=== PATIENT | male | born 1955 | race Caucasian/White ===

== ENCOUNTER → 2024-11-07 | Outpatient (CLI) | payer OTHER ==
--- NOTE | 2024-11-07 11:58 | HMCIMG ---
US ART IN & VEIN OUT HISTORY: Essential hypertension COMPARISON: None TECHNIQUE: Renal and renal arterial Doppler ultrasound study was performed. FINDINGS: The right kidney measures 10.7 x 5.1 x 4.8 cm. The left kidney measures 11.9 x 5.8 x 4.3 cm. No evidence of hydronephrosis is seen of either kidney. Both kidneys are seen. There are right renal cysts with the largest measuring 2 cm. Normal renal arterial waveforms are noted of both kidneys. The systolic velocity of right renal artery is 169 cm/s, left renal artery is 155 cm/s and abdominal aorta is 134 cm/s. Right renal artery aortic ratio is 1.3. Left renal artery aortic ratio is 1.2. IMPRESSION: 1. No hydronephrosis is seen. Unremarkable renal arterial Doppler ultrasound study.
== END | disposition home or self-care (01) ==
LOC: RAH 08:34
PROVIDERS: ATTEND Family Medicine
DX: N28.1 Cyst of kidney, acquired (principal); I11.9 Hypertensive heart disease without heart failure; I15.9 Secondary hypertension, unspecified
CPT/HCPCS: 76770; 93975

== ENCOUNTER 2024-11-20 11:45 | Emergency (ER) | payer OTHER ==
[~2024-11-20] VITALS: Ht 177.8 cm; Wt 90.3 kg
--- NOTE | 2024-11-20 12:46 | ERN ---
ED Note History of Present Illness Stated Complaint: SENT BY Chief Complaint: Cellulitis Time Seen by MD: 12:16 Dictation: 69-year-old male presents to the ED for evaluation of left elbow swelling onset three days ago. Patient reports redness, but denies any fever or other associated symptoms at this time. Patient was seen by PCP where they noticed he had elevated blood pressure, patient was prescribed blood pressure medication and antibiotics that were sent to the pharmacy. PCP told patient to come to the ER for further evaluation. Allergies: Coded Allergies: Penicillins (Unverified Allergy, Unknown, HIVES, 11/20/24) Home Meds Active Scripts Clindamycin HCl (Clindamycin HCl) 300 Mg Capsule, 1 CAP PO TID for 10 Days, #30 CAP 0 Refills Prov:ANNIE ARANA MD 11/20/24 Colchicine (Colchicine) 0.6 Mg Capsule, 1 CAP PO DAILY for 10 Days, #10 CAP 0 Refills Prov:ANNIE ARANA MD 11/20/24 Past Medical History Past Medical History: Diabetes-Type II, Hypertension Additional Past Medical Hx: SLEEP APNEA, CHRONIC BACK PAIN Surgical History: Other Surgical History Other: BACK. UMBILICAL HERNIA Review of System Dictation Constitutional: Negative for fever,chills, and weight loss Eyes: Negative for injury, pain,redness, and discharge ENT: Negative for injury,pain or swelling Cardiovascular: Negative for chest pain, palpitations, and edema Respiratory: Negative for shortness of breath, cough, and wheezing, Abdomen/GI: Negative for abdominal pain, nausea, vomiting, diarrhea, and constipation Back: Negative for injury and pain : Negative for injury, bleeding and discharge MS/Extremity: Positive for left elbow swelling and redness Negative for injury and deformity Skin: Negative for rash, and discoloration Neuro: Negative for headache, weakness, numbness, tingling, and seizure Psych: Negative for suicide ideation, homicidal ideation, and hallucinations Initial Vital Sign VS Vital Signs Date Time Temp Pulse Resp B/P (MAP) Pulse Ox O2 Delivery O2 Flow Rate FiO2 11/20/24 11:53 98.2 77 16 210/94 97 Room Air 0 Physical Exam Dictation General: awake, alert, NAD Head/Face: Normocephalic, atraumatic Eyes: PERRL, EOMI, vision at baseline ENT: oral cavity clear, TMs clear, no signs of infection Neck: Trachea midline, supple, no nuchal rigidity Cardiovascular: RRR, normal S1/S2, No MRGs, no JVD Respiratory: CTAB, no respiratory distress, No rales or wheezes Abdomen: Soft, non-tender, non-distended, normal bowel sounds, no guarding or rebound. Skin: Warm, dry, normal turgor, no rash MS/Extremity: Pulses equal, no cyanosis, neurovascular intact, left elbow erythema, swelling and tenderness consistent with cellulitis Neuro: COAx4, GCS 15, strength 5/5, CN 2-12 intact, normal cerebellar exam, normal gait, Psych: Normal behavior, mood, and affect normal Results (Laboratory/Radiology) Laboratory/Radiology Laboratory Tests Test 11/20/24 12:51 White Blood Count 7.7 K/uL (4.8-10.8) Red Blood Count 4.65 MIL/uL (4.50-6.20) Hemoglobin 15.3 g/dL (14.0-18.0) Hematocrit 46.2 % (42-54) Mean Corpuscular Volume 99.4 fL (79-99) H Mean Corpuscular Hemoglobin 32.9 pg (27.0-33.0) Mean Corpuscular Hemoglobin Concent 33.1 g/dL (32.0-36.0) Red Cell Distribution Width 12.8 % (11.0-15.5) Platelet Count 282 K/uL (130-400) Mean Platelet Volume 9.5 fL (7.5-10.5) Immature Granulocyte % (Auto) 0.3 % (0-1) Neutrophils (%) (Auto) 68.9 % (40.0-77.0) Lymphocytes (%) (Auto) 12.3 % (21.0-51.0) L Monocytes (%) (Auto) 15.8 % (3.0-13.0) H Eosinophils (%) (Auto) 2.2 % (0.0-8.0) Basophils (%) (Auto) 0.5 % (0.0-5.0) Neutrophils # (Auto) 5.3 K/uL (1.8-7.7) Lymphocytes # (Auto) 0.9 K/uL (1.0-4.8) L Monocytes # (Auto) 1.2 K/uL (0.1-1.0) H Eosinophils # (Auto) 0.17 K/uL (0.00-0.70) Basophils # (Auto) 0.04 K/uL (0.00-0.20) Absolute Immature Granulocyte (auto 0.02 K/uL (0-1) Nucleated Red Blood Cells 0.0 % (0.0-0.19) White Cell Morphology Comment See comments Erythrocyte Sedimentation Rate 40 MM/HR (0-20) H Sodium Level 140 mmol/L (136-145) Potassium Level 4.5 mmol/L (3.5-5.1) Chloride Level 101 mmol/L (101-111) Carbon Dioxide Level 30 mmol/L (21-32) Blood Urea Nitrogen 24 mg/dL (7-18) H Creatinine 1.2 mg/dL (0.5-1.3) Glomerular Filtration Rate Calc 65 mL/min (>90) Random Glucose 159 mg/dL (70-105) H Uric Acid 8.6 mg/dL (2.6-7.2) H Total Calcium 9.7 mg/dL (8.5-10.1) Labs Reviewed?: Yes ED Course ED Course Orders Procedure Category Date Status Time Uric Acid LAB 11/20/24 Complete 12:29 Basic Metabolic Panel LAB 11/20/24 Complete 12:29 Cbc With Differential LAB 11/20/24 Complete 12:29 Erythrocyte LAB 11/20/24 Complete Sedimentation Rate 12:29 Elbow 2vws Lt RAD 11/20/24 Resulted 12:29 Ceftriaxone 1g Vial PHA 11/20/24 Complete (Rocephine 1g Inj) 12:30 Current Medications Medications (Trade) Dose Ordered Sig/Nathalie Route PRN Reason Start Time Stop Time Status Last Admin Dose Admin Ceftriaxone Sodium (ROCEphine 1G INJ) 1 gm ONCE ONCE IVPB 11/20/24 12:30 11/20/24 12:33 DC Vital Signs Date Time Temp Pulse Resp B/P (MAP) Pulse Ox O2 Delivery O2 Flow Rate FiO2 11/20/24 11:53 98.2 77 16 210/94 97 Room Air 0 Medical Decision Making MDM MDM: Differential diagnosis:cellulitis, left elbow pain, gout Risk of complication and/or morbidity or mortality of patient management: None Medications-Per medication reconciliation Need for hospitalization: Patient does not meet criteria for hospitalization. Need for emergency major/minor surgery: No There are no social concerns with this patient. Prescription drug management Prescriptions will include symptomatic care I independently interpreted the test that were performed, results were reviewed by me and considered findings on radiology if ordered. DX & DISP Disposition: Discharge Departure Impression: Primary Impression: Cellulitis of left elbow Condition: Stable Scripts Clindamycin HCl (Clindamycin HCl) 300 Mg Capsule 1 CAP PO TID for 10 Days, #30 CAP 0 Refills Prov: ANNIE ARANA MD 11/20/24 Colchicine (Colchicine) 0.6 Mg Capsule 1 CAP PO DAILY for 10 Days, #10 CAP 0 Refills Prov: ANNIE ARANA MD 11/20/24 Referrals: SHER HERNANDEZ MD (PCP) ANNIE ARANA MD Nov 20, 2024 12:46
[2024-11-20 13:09] LABS: BASOPHILS # (AUTO) 0.04 K/uL (0.00-0.20); BASOPHILS % (AUTO) 0.5 % (0.0-5.0); EOSINOPHILS # (AUTO) 0.17 K/uL (0.00-0.70); EOSINOPHILS % (AUTO) 2.2 % (0.0-8.0); HEMATOCRIT 46.2 % (42-54); IMMATURE GRANULOCYTE ABSOLUTE 0.02 K/uL (0-1); LYMPHOCYTES # (AUTO) 0.9 K/uL (1.0-4.8); LYMPHOCYTES % (AUTO) 12.3 % (21.0-51.0); MEAN CORPUSCULAR HEMOGLOBIN 32.9 pg (27.0-33.0); MEAN CORPUSCULAR HGB CONC 33.1 g/dL (32.0-36.0); MEAN CORPUSCULAR VOLUME 99.4 fL (79-99); MONOCYTES # (AUTO) 1.2 K/uL (0.1-1.0); MONOCYTES % (AUTO) 15.8 % (3.0-13.0); NEUTROPHILS # (AUTO) 5.3 K/uL (1.8-7.7); NEUTROPHILS % (AUTO) 68.9 % (40.0-77.0); PLATELET COUNT (AUTO) 282 K/uL (130-400); RED BLOOD CELL COUNT(AUTO) 4.65 MIL/uL (4.50-6.20); RED CELL DISTRIBUTION WIDTH 12.8 % (11.0-15.5); WHITE BLOOD COUNT (AUTO) 7.7 K/uL (4.8-10.8)
[2024-11-20 13:20] LABS: CREATININE 1.2 mg/dL (0.5-1.3); POTASSIUM 4.5 mmol/L (3.5-5.1); URIC ACID 8.6 mg/dL (2.6-7.2)
[2024-11-20 14:56] LABS: ERYTHROCYTE SEDIMENTATION RATE 40 MM/HR (0-20)
[2024-11-20] MEDS ORDERED: CLIN-141 PO (15:42)
[2024-11-20] MEDS ORDERED: COLC0.6C3 PO (15:42)
--- NOTE | 2024-11-20 15:49 | HMCIMG ---
ELBOW 2VWS LT HISTORY: Pain COMPARISON: None TECHNIQUE: 2 images of left elbow were obtained. FINDINGS: There is no acute displaced fracture or dislocation. There is soft tissue swelling. Degenerative changes are seen. IMPRESSION: 1. Findings as described above.
[2024-11-20] MEDS: cefTRIAXone 1G VIAL IVPB ONE (15:53)
[2024-11-20] MEDS: cloNIDine HCL 0.2 MG TABLET PO ONE (16:04)
[2024-11-20 17:35] VITALS: BP 154/93; PULSE 78; RESP 18; TEMP 98.2; O2SAT 97
== END 2024-11-20 17:36 | disposition home or self-care (01) ==
LOC: EDH 11:45
DX: L03.114 Cellulitis of left upper limb (principal); E11.9 Type 2 diabetes mellitus without complications; I10 Essential (primary) hypertension; Z79.899 Other long term (current) drug therapy; Z88.0 Allergy status to penicillin
CPT/HCPCS: 99284; 96365; 84550; 80048; 85025; 85651; 36415; 73070; J0696